=== PATIENT | female | born 1960 | race Caucasian/White ===

== ENCOUNTER 2018-03-15 06:05 | Inpatient (IN) | payer OTHER ==
[2018-03-15] VITALS (13 sets, daily range): BP systolic 81–124; BP diastolic 57–85
[~2018-03-15] VITALS: Ht 172.7 cm; Wt 84.1 kg
[2018-03-15 07:18] LABS: HEMATOCRIT 33.1 % (36.0-46.0); HEMOGLOBIN 11.9 G/DL (11.9-15.5); MCH 29.5 PG (29.0-34.0); MCV 82.1 FL (83-99); PLATELET COUNT 351 K/uL (156-360); RBC DIS.WIDTH-CV 12.5 % (11.8-14.6); RBC DIS.WIDTH-SD 37.8 % (39-53); RED BLOOD COUNT 4.03 M/uL (3.80-5.20); WHITE BLOOD COUNT 12.2 K/uL (4.1-10.2)
[2018-03-15 08:03] LABS: CHLORIDE 73 MEQ/L (99-109); CREATINE KINASE 102 IU/L (1-294); CREATININE 1.7 MG/DL (0.6-1.3); GFR ESTIMATE (CALCULATED) 33 mL/min/; POTASSIUM 3.1 MEQ/L (3.7-5.4); TOTAL CK 102 IU/L (1-294); UREA NITROGEN (BUN) 28 mg/dL (9-23)
[2018-03-15 08:04] LABS: GLUCOSE 1116 mg/dL (70-99); SODIUM 116 MEQ/L (136-147)
[2018-03-15 08:36] LABS: CARBON DIOXIDE (BICARBONATE) 35.1 MEQ/L (20-31)
[2018-03-15 08:47] LABS: CK-MB 1.3 ng/mL (0.0-4.9); CKMB RELATIVE INDEX 1.3 (0.0-3.9)
[2018-03-15 09:02] LABS: APPEARANCE CLEAR ((CLEAR)); BILIRUBIN NEGATIVE; BLOOD SMALL; COLOR YELLOW ((YELLOW)); GLUCOSE (STRIP) >=500; KETONES 5; LEUKOCYTES NEGATIVE; NITRITE NEGATIVE; PROTEIN (STRIP) NEGATIVE; UROBILINOGEN 0.2 MG/DL (0.2-1.0)
[2018-03-15 09:05] LABS: BACTERIA RARE /HPF; EPITHELIAL CELLS RARE /HPF; MUCUS TRACE /LPF; RED BLOOD CELLS 0-5 /HPF (0-5)
[2018-03-15] MEDS ORDERED: ZESTRIL40 MG PO (09:56)
[2018-03-15] MEDS ORDERED: HYDROCHLOROTHIA25 MG PO (09:56)
[2018-03-15] MEDS ORDERED: NORCO 10/3251 TABLET PO (09:56)
[2018-03-15] MEDS ORDERED: FLEXERIL10 MG PO ×2 (09:57→09:58)
[2018-03-15] MEDS ORDERED: OMEPRAZOLE40 M1 PO (09:57)
[2018-03-15] MEDS ORDERED: GABAPENTIN100 MG PO (09:57)
[2018-03-15] MEDS ORDERED: VOLTAREN75 MG PO (09:57)
[2018-03-15] MEDS ORDERED: PROAIR HFA8.5 GM IH (09:58)
[2018-03-15] MEDS ORDERED: FLONASE16 G1 BOTH NARES (09:58)
[2018-03-15 12:48] LABS: GLUCOSE 650 mg/dL (70-99)
[2018-03-15 12:56] LABS: POTASSIUM 2.5 MEQ/L (3.7-5.4)
[2018-03-15 12:59] LABS: CHLORIDE 86 MEQ/L (99-109); SODIUM 125 MEQ/L (136-147)
[2018-03-15 13:03] LABS: CREATININE 1.4 MG/DL (0.6-1.3); GFR ESTIMATE (CALCULATED) 41 mL/min/; PHOSPHORUS 2.3 mg/dL (2.5-4.9); UREA NITROGEN (BUN) 24 mg/dL (9-23)
[2018-03-15 13:11] LABS: GLUCOSE 636 mg/dL (70-99)
[2018-03-15 14:54] LABS: HEMOGLOBIN A1c (GLYCOHEMOGLOB) 17.4 % (Below 5.7)
[2018-03-15 16:36] LABS: CHLORIDE 89 MEQ/L (99-109); CREATININE 1.3 MG/DL (0.6-1.3); GFR ESTIMATE (CALCULATED) 45 mL/min/; GLUCOSE 351 mg/dL (70-99); PHOSPHORUS 1.2 mg/dL (2.5-4.9); POTASSIUM 2.7 MEQ/L (3.7-5.4); SODIUM 130 MEQ/L (136-147); UREA NITROGEN (BUN) 21 mg/dL (9-23)
[2018-03-15 20:19] LABS: CHLORIDE 89 MEQ/L (99-109); CREATININE 1.3 MG/DL (0.6-1.3); GFR ESTIMATE (CALCULATED) 45 mL/min/; GLUCOSE 265 mg/dL (70-99); PHOSPHORUS 1.4 mg/dL (2.5-4.9); POTASSIUM 2.6 MEQ/L (3.7-5.4); SODIUM 129 MEQ/L (136-147); UREA NITROGEN (BUN) 22 mg/dL (9-23)
[2018-03-16] VITALS (9 sets, daily range): BP systolic 94–132; BP diastolic 58–83
[2018-03-16 00:50] LABS: CHLORIDE 92 mEq/L (99-109); SODIUM 133 mEq/L (136-147)
[2018-03-16 00:55] LABS: CREATININE 1.2 mg/dL (0.6-1.3); GFR ESTIMATE (CALCULATED) 49 mL/min/; PHOSPHORUS 2.4 mg/dL (2.5-4.9)
[2018-03-16 00:56] LABS: UREA NITROGEN (BUN) 20 mg/dL (9-23)
[2018-03-16 01:00] LABS: GLUCOSE 111 mg/dL (70-99); POTASSIUM 3.3 mEq/L (3.7-5.4)
[2018-03-16 04:44] LABS: CHLORIDE 95 mEq/L (99-109); POTASSIUM 3.4 mEq/L (3.7-5.4); SODIUM 135 mEq/L (136-147)
[2018-03-16 04:45] LABS: GLUCOSE 134 mg/dL (70-99)
[2018-03-16 04:49] LABS: CREATININE 1.2 mg/dL (0.6-1.3); GFR ESTIMATE (CALCULATED) 49 mL/min/; PHOSPHORUS 2.8 mg/dL (2.5-4.9)
[2018-03-16 04:50] LABS: UREA NITROGEN (BUN) 19 mg/dL (9-23)
[2018-03-16 09:25] LABS: CHLORIDE 98 MEQ/L (99-109); GFR ESTIMATE (CALCULATED) > 59 mL/min/; GLUCOSE 157 mg/dL (70-99); PHOSPHORUS 2.8 mg/dL (2.5-4.9); POTASSIUM 3.8 MEQ/L (3.7-5.4); SODIUM 135 MEQ/L (136-147); UREA NITROGEN (BUN) 16 mg/dL (9-23)
[2018-03-17 00:23] VITALS: BP 135/57
[2018-03-17 06:49] VITALS: BP 99/55
[2018-03-17 09:51] LABS: GFR ESTIMATE (CALCULATED) > 59 mL/min/; POTASSIUM 3.8 MEQ/L (3.7-5.4); UREA NITROGEN (BUN) 13 mg/dL (9-23)
[2018-03-17 09:52] LABS: CHLORIDE 111 MEQ/L (99-109); GLUCOSE 61 mg/dL (70-99); SODIUM 149 MEQ/L (136-147)
[2018-03-17 10:49] VITALS: BP 108/58
[2018-03-17 16:50] VITALS: BP 107/69
[2018-03-18 00:34] VITALS: BP 114/65
[2018-03-18 06:14] LABS: HEMATOCRIT 30.9 % (36.0-46.0); HEMOGLOBIN 10.3 G/DL (11.9-15.5); MCH 29.2 PG (29.0-34.0); MCHC 33.3 G/DL (30.0-36.0); PLATELET COUNT 314 K/uL (156-360); RBC DIS.WIDTH-CV 13.2 % (11.8-14.6); RBC DIS.WIDTH-SD 42.2 % (39-53); RED BLOOD COUNT 3.53 M/uL (3.80-5.20)
[2018-03-18 06:22] LABS: MCV 87.5 FL (83-99)
[2018-03-18 06:27] LABS: CHLORIDE 105 MEQ/L (99-109); CREATININE 0.9 MG/DL (0.6-1.3); GFR ESTIMATE (CALCULATED) > 59 mL/min/; GLUCOSE 96 mg/dL (70-99); PHOSPHORUS 3.2 mg/dL (2.5-4.9); POTASSIUM 4.4 MEQ/L (3.7-5.4); SODIUM 141 MEQ/L (136-147); UREA NITROGEN (BUN) 13 mg/dL (9-23)
[2018-03-18 07:02] VITALS: BP 109/79
[2018-03-18] MEDS ORDERED: CEFDINIR300 MG PO (09:40)
[2018-03-18] MEDS ORDERED: GLUCOMETER MC (09:40)
[2018-03-18] MEDS ORDERED: LEVEMIR FL100 UNIT/1 SC ×2 (09:40)
[2018-03-18] MEDS ORDERED: METFORMIN HCL500 MG PO (09:40)
== END 2018-03-18 13:36 | disposition home or self-care (01) | DRG 638 ==
LOC: EME → EDBD 06:05 → EME 06:05 → EDOF 09:00 → 4WEST 09:00 → ENRESERV 09:01 → 4WEST 10:21 → ENRESERV 03-16 15:23 → 2EAST 03-16 16:58
PROVIDERS: Emergency Medicine; Hospitalist; Internal Medicine Critical Care Medicine
DX: E11.00 Type 2 diabetes mellitus with hyperosmolarity without nonketotic hyperglycemic-hyperosmolar coma (NKHHC) (principal); E86.0 Dehydration; E87.1 Hypo-osmolality and hyponatremia; N17.9 Acute kidney failure, unspecified; I10 Essential (primary) hypertension; N39.0 Urinary tract infection, site not specified; G62.9 Polyneuropathy, unspecified; Z79.4 Long term (current) use of insulin; B96.20 Unspecified Escherichia coli [E. coli] as the cause of diseases classified elsewhere; J44.9 Chronic obstructive pulmonary disease, unspecified
CPT/HCPCS: 80048; 80048 91; 81003; 82010; 82550; 82553; 82803; 82948; 83036; 84100; 84999; 85027; 87077; 87086; 87186; 87641; 99281; 99285; J0696; J1644; J1815; J2060; J3480; J7030; J7040; J7050